=== PATIENT | male | born 1955 ===

== ENCOUNTER 2019-11-08 17:42 | Emergency (ER) | payer OTHER, MEDICARE ==
[~2019-11-08] VITALS: Ht 185.4 cm; Wt 145.2 kg
[~2019-11-08 17:42] MED LIST: ALBU90OI INH; AMLO10 PO; CEPH500 PO; CETI5 PO; CHLO25B PO; CHOL10002 PO; CLOB.05TC TOP; CLON.2 PO; CLON.3 PO; CYCL10 PO; DESO.05TCA TOP; FERR325 PO; FINA5 PO; GABA600 PO; HYDSUL200 PO; LEVO750 PO; LOSA50 PO; METHOTREXA25 MG/1 M1 SC; METTREX2.5 PO; MORP30 PO; OMEP20ER PO; OXYC5 PO; PRAM.5 PO; PRED20 PO; PRED5 PO; SILD50TA PO; TAMS.4ER PO
[2019-11-08] MEDS ORDERED: ALLO100 PO (21:01)
[2019-11-08] MEDS ORDERED: ATOR80 PO (21:01)
[2019-11-08] MEDS ORDERED: CAMPHOR (21:02)
[2019-11-08] MEDS ORDERED: TUMS500 MG PO (21:02)
[2019-11-08] MEDS ORDERED: VOLTAREN ARTHRI20 GM TP (21:03)
[2019-11-08] MEDS ORDERED: DULO60 PO (21:03)
[2019-11-08] MEDS ORDERED: CARV3.125 PO (21:03)
[2019-11-08] MEDS ORDERED: LOSA50 PO (21:04)
[2019-11-08] MEDS ORDERED: GABA800 PO (21:04)
[2019-11-08] MEDS ORDERED: HYDRA25 PO (21:04)
[2019-11-08] MEDS ORDERED: HYDCHL25 PO (21:04)
[2019-11-08] MEDS ORDERED: METO2.5 PO (21:11)
[2019-11-08] MEDS ORDERED: MORP15ER PO (21:11)
[2019-11-08] MEDS ORDERED: MAGNESIUM OXID500 MG PO (21:11)
[2019-11-08] MEDS ORDERED: OLODATEROL/TIOTROP (21:12)
[2019-11-08] MEDS ORDERED: OMEP20ER PO (21:12)
[2019-11-08] MEDS ORDERED: POTA10T PO (21:13)
[2019-11-08] MEDS ORDERED: TORSE20 PO (21:14)
[2019-11-08] MEDS ORDERED: PRED1 PO (21:14)
[2019-11-08] MEDS ORDERED: AMLO5 PO (21:15)
[2019-11-08] MEDS ORDERED: COLCHICINE0.6 MG PO (21:15)
[2019-11-08] MEDS ORDERED: Norco 5-325 Ta1 EACH PO (22:56)
== END 2019-11-09 00:22 | disposition home or self-care (01) ==
LOC: ER 17:42
DX: S93.05XA Dislocation of left ankle joint, initial encounter (principal); E11.42 Type 2 diabetes mellitus with diabetic polyneuropathy; I10 Essential (primary) hypertension; J44.9 Chronic obstructive pulmonary disease, unspecified; Z79.52 Long term (current) use of systemic steroids; Z79.899 Other long term (current) drug therapy; Z88.8 Allergy status to other drugs, medicaments and biological substances; X50.1XXA Overexertion from prolonged static or awkward postures, initial encounter; Y93.89 Activity, other specified
CPT/HCPCS: 27840; 36415; 73560-LT; 73600; 73610; 73630; 73700; 99284-25; J2704; J7030